=== PATIENT | female | born 1950 | race Caucasian/White ===

== ENCOUNTER 2023-07-26 10:33 | Emergency (ER) | payer MEDICARE, BC ==
[~2023-07-26] VITALS: Ht 162.6 cm; Wt 59.0 kg
[2023-07-26] MEDS ORDERED: LIDOCAINE 1%-EPI 1:100,000 20 ML VIAL ONE (10:48)
[2023-07-26] MEDS ORDERED: LIDOCAINE 1% INJ 50 ML MDV IJ ONE (10:50)
[2023-07-26 13:15] VITALS: BP 132/68; TEMP 98.3; O2SAT 100
== END 2023-07-26 13:15 | disposition home or self-care (01) ==
LOC: ER 10:36
DX: S01.01XA Laceration without foreign body of scalp, initial encounter (principal); S09.90XA Unspecified injury of head, initial encounter; W01.0XXA Fall on same level from slipping, tripping and stumbling without subsequent striking against object, initial encounter; Y93.89 Activity, other specified; Y92.89 Other specified places as the place of occurrence of the external cause; Y99.8 Other external cause status
CPT/HCPCS: 12004; 70450; 99284; A6403; J3490

== ENCOUNTER 2023-08-02 09:18 | Emergency (ER) | payer MEDICARE, BC ==
[~2023-08-02] VITALS: Ht 162.6 cm; Wt 59.0 kg
[2023-08-02 09:24] VITALS: TEMP 98.9
[2023-08-02 09:41] VITALS: O2SAT 98
== END 2023-08-02 09:41 | disposition home or self-care (01) ==
LOC: ER 09:20
DX: Z48.02 Encounter for removal of sutures (principal); S01.01XD Laceration without foreign body of scalp, subsequent encounter; X58.XXXD Exposure to other specified factors, subsequent encounter